=== PATIENT | female | born 1970 | race Caucasian/White ===

== ENCOUNTER 2021-03-30 12:52 | Emergency (ER) | payer SELFPAY ==
[~2021-03-30] VITALS: Ht 154.9 cm; Wt 65.8 kg
[2021-03-30 12:54] VITALS: BP 132/65
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
[2021-03-30] MEDS ORDERED: KETOROLAC 60 MG/2 ML VIAL IM ONE (13:00)
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
--- NOTE | 2021-03-30 13:11 | NUR ---
XRAY AT BEDSIDE TO TRANSFER PATIENT VIA WHEELCHAIR
[2021-03-30] MEDS ORDERED: IBUP-2213 PO (14:33)
[2021-03-30] MEDS ORDERED: ACET-8386 PO (14:33)
[2021-03-30 15:00] VITALS: BP 132/65
--- NOTE | 2021-03-30 15:00 | NUR ---
Patient discharged with v/s stable. Written and verbal after care instructions given and explained. Patient alert, oriented and verbalized understanding of instructions. Ambulatory with steady gait. All questions addressed prior to discharge. ID band removed. Patient advised to follow up with PMD. Rx of NORCO, MOTRIN given. Patient educated on indication of medication including possible reaction and side effects. Opportunity to ask questions provided and answered.
== END 2021-03-30 15:00 | disposition home or self-care (01) ==
LOC: MED 12:52
DX: S70.02XA Contusion of left hip, initial encounter (principal); W19.XXXA Unspecified fall, initial encounter; Y93.89 Activity, other specified; Y92.89 Other specified places as the place of occurrence of the external cause; Y99.8 Other external cause status
CPT/HCPCS: 73502; 96372; 99283; J1885